=== PATIENT | male | born 1945 | race Caucasian/White ===

== ENCOUNTER 2018-07-31 08:09 | Day surgery (SDC) | payer OTHER ==
[2018-07-30 14:50] VITALS: BMI 30.2
--- NOTE | 2018-07-31 08:31 | HP ---
DATE OF ADMISSION: 07/31/2018 HISTORY: This is a 72-year-old man admitted to the hospital for bilateral laparoscopic inguinal hernia repair with mesh, possible open right repair with mesh. Since the initial dictated history and physical, his medical condition has not changed. He does suffer with hypertension, hypercholesterolemia, and diabetes. He also has prostatism and is followed by the urologic service and has been started on Flomax. PAST SURGICAL HISTORY: Nil. ALLERGIES: None known. MEDICATIONS: None. The patient states he controls most of his medical issues with diet. SOCIAL HISTORY: Negative tobacco. Positive alcohol, a glass of wine daily. FAMILY HISTORY: Father is . History of CVA in his 50s. Mother in her 40s. Siblings, one with heart disease. REVIEW OF SYSTEMS: Otherwise nil. PHYSICAL EXAMINATION: Patient with bilateral inguinal hernias. The right is large. The left is small. They are both reducible. The testes are unremarkable. IMPRESSION: Bilateral inguinal hernias, right larger and symptomatic, left smaller and asymptomatic. PLAN: Laparoscopic inguinal hernia repair with mesh. If the procedure cannot be accomplished laparoscopically, has opted to undergo open right with mesh. Indications, alternatives, and possible complications reviewed. Consent obtained. GAYATHRI BANERJEE M.D. [id number]
[2018-07-31] MEDS ORDERED: PROPOFOL 20 ML ONE ×2 (08:34→10:46)
[2018-07-31] MEDS ORDERED: fentaNYL CITRATE 250 MCG/5 ML VIAL ONE (08:34)
[2018-07-31] MEDS ORDERED: DEXAMETHASONE SOD PHOSPHATE 4 MG/1 ML VIAL ONE (08:35)
[2018-07-31] MEDS ORDERED: LIDOCAINE HCL/PF 2% SDV 5ML VIAL ONE (08:35)
[2018-07-31] MEDS ORDERED: ROCURONIUM BROMIDE 50 MG/5 ML VIAL ONE (08:35)
[2018-07-31] MEDS ORDERED: ONDANSETRON 4 MG/2 ML VIAL ONE (08:35)
[2018-07-31] MEDS ORDERED: ceFAZolin SODIUM 1 GM VIAL ONE ×2 (08:38→09:56)
[2018-07-31] MEDS ORDERED: TAMSULOSIN HCL 0.4 MG CAP.ER.24H (FP) ONE (08:41)
[2018-07-31] MEDS ORDERED: TAMSULOSIN HCL 0.4 MG CAP.ER.24H (FP) PO ONE (09:00)
[2018-07-31] MEDS ORDERED: MIDAZOLAM HCL 2 MG/2 ML SINGLE DOSE VIAL ONE ×2 (09:10)
[2018-07-31] MEDS ORDERED: ROPIVACAINE HCL 0.5% 30ML VIAL ONE (09:12)
[2018-07-31] MEDS ORDERED: DEXAMETHASONE SOD PHOSPHATE/PF 10 MG/ML SDV ONE (09:12)
[2018-07-31] MEDS ORDERED: ceFAZolin SODIUM 1 GM VIAL IVPB ONE (09:45)
[2018-07-31] MEDS ORDERED: oxyCODONE HCL 5 MG TABLET PO PRN ×2 (10:12)
[2018-07-31] MEDS ORDERED: ONDANSETRON 4 MG/2 ML VIAL IVPUSH PRN (10:12)
[2018-07-31] MEDS ORDERED: LACTATED RINGERS SOLUTION 1,000 ML IV SCH (10:15)
[2018-07-31] MEDS ORDERED: GLYCOPYRROLATE 0.2 MG/1 ML VIAL ONE (10:41)
[2018-07-31] MEDS ORDERED: NEOSTIGMINE METHYLSULFATE 0.5 MG/ML - 10 ML MDV ONE (10:41)
[2018-07-31 15:09] VITALS: TEMP 98.4
[2018-07-31 15:14] VITALS: BP 138/70; PULSE 75
--- NOTE | 2018-07-31 23:57 | OP ---
DATE OF OPERATION: 07/31/2018 PREOPERATIVE DIAGNOSIS: Bilateral inguinal hernias. POSTOPERATIVE DIAGNOSIS: Indirect right inguinal hernia/direct left inguinal hernia. PROCEDURE: Bilateral laparoscopic inguinal hernia repair with mesh. OPERATING SURGEON: Mart Dhillon M.D. TRUCK JUMPER: Rogelio Hernandez M.D. ANESTHESIA: Logan Rock M.D. (general) HISTORY: This is a 72-year-old man who presents for bilateral laparoscopic inguinal hernia repair with mesh. Indications, alternatives, possible complications reviewed. Consent obtained. PROCEDURE: With the patient in the supine position, under general anesthesia, the abdomen was prepped and draped in sterile fashion using chlorhexidine. Small incision was made just beneath the umbilicus and off to the right of the midline. The subcutaneous tissues were . The right anterior rectus sheath was identified and incised. The rectus muscle fibers were retracted laterally in both directions exposing the preperitoneal space. A dissecting wound was advanced in the preperitoneal space under direct vision toward the pubis. The wound was insufflated, creating the dissecting. Balloon was removed, leaving the structural column in place. The preperitoneal space was inflated to an adequate pressure and volume using CO2 gas. The camera lens was passed through the umbilical port site and the preperitoneal space visualized. Under direct vision an 11-mm port was placed in the midline midway between the umbilicus and the pubis. The operating instruments were passed through this port. Exploration of the preperitoneal space allowed recognition of the anatomy. On the right side, there was a large indirect component, with some attenuation of the direct space, but with no obvious direct hernia. No right femoral hernia noted. On the left side, there was an obvious direct hernia containing incarcerated fibrofatty tissue. There was a small clinically insignificant indirect sac. There was no left femoral component. First directing our attention to the left side, the incarcerated contents of the left indirect component were reduced. A small clinically insignificant sac was further reduced. The left side was repaired using a piece of 4x6 inch Versatex mesh. The mesh was keyholed and placed in the preperitoneal space. It was tacked in place using counter palpation and an AbsorbaTacker. The mesh was fixed superiorly to the ileopubic tract. The mesh was fixed anterior to the anterior abdominal wall. The mesh was fixed inferiorly at the Raciel's ligament and the pubic tubercle. The keyhole leaf of the mesh was wrapped around the cord and tacked in placed buttressing the internal ring. Now directing our attention onto the right side, the large indirect component was reduced with skeletonization of the cord. The right side was repaired with the same mesh and technique as described for the contralateral side. After completion of the repair, the mesh was noted overlapping the midline. Adequate hemostasis was insured. The midline port was removed under direct vision and no bleeding identified. Ultimately the umbilical cord cannula was removed, and the gas was allowed to escape from the preperitoneal space. The fascia at all port sites was closed using interrupted 0 Vicryl sutures. Both skin wounds were closed using subcuticular 4-0 Biosyn sutures. Needle and instrument counts were correct. Estimated blood loss minimal. Specimens none. Implant mesh x2. Drains none. Patient tolerated the procedure. Procedure was terminated. Sheri [id number]
== END 2018-07-31 14:30 | disposition home or self-care (01) ==
LOC: JASU-SURG 08:09
PROVIDERS: ATTEND Surgery
PROC: 0YUA4JZ Supplement Bilateral Inguinal Region with Synthetic Substitute, Percutaneous Endoscopic Approach (ICD-10-PCS; principal; 2018-07-31 09:30)
DX: K40.20 Bilateral inguinal hernia, without obstruction or gangrene, not specified as recurrent (principal); E11.9 Type 2 diabetes mellitus without complications; I10 Essential (primary) hypertension; Z79.84 Long term (current) use of oral hypoglycemic drugs
CPT/HCPCS: 82962; 94760